=== PATIENT | male | born 1970 | race Caucasian/White ===

== ENCOUNTER 2018-01-09 19:20 | Emergency (ER) | payer OTHER ==
[~2018-01-09] VITALS: Ht 170.2 cm; Wt 95.3 kg
--- NOTE | 2018-01-09 19:46 | NUR ---
PT BIB WITH A C/O SWOLLEN UPPER LIP. PT STATED THAT THE ITCHINESS AND EDEMA HAS BEEN HAPPENING INTERMITTENTLY OVER 2 WEEKS. PT STATED THAT THE UPPER LIP EDEMA STARTED AT 1730.
[2018-01-09] MEDS ORDERED: diphenhydrAMINE HCL 50 MG/ML VIAL IV ONE (20:00)
[2018-01-09] MEDS ORDERED: methylPREDNISolone SOD SUCC 125 MG/2ML VIAL IV ONE (20:00)
[2018-01-09] MEDS ORDERED: diphenhydrAMINE HCL 50 MG/ML VIAL ONE (20:13)
[2018-01-09] MEDS ORDERED: methylPREDNISolone SOD SUCC 125 MG/2ML VIAL ONE (20:13)
--- NOTE | 2018-01-09 20:20 | NUR ---
18G IV STARTED IN RAC.
--- NOTE | 2018-01-09 21:15 | NUR ---
IV removed. Catheter intact and site benign. Pressure and 4x4 applied to site. No bleeding noted.Patient discharged to home in stable condition. Written and verbal after care instructions given. Patient verbalizes understanding of instruction AND RX. PT AMBULATED OUT WITH A STEADY GAIT. VSS.
[2018-01-09 21:31] VITALS: BP 135/82
== END 2018-01-09 21:32 | disposition home or self-care (01) ==
LOC: ER 19:29
DX: R22.0 Localized swelling, mass and lump, head (principal); R21 Rash and other nonspecific skin eruption; F17.200 Nicotine dependence, unspecified, uncomplicated
CPT/HCPCS: A4606; J1200; J2930; Z7610